=== PATIENT | male | born 1970 | race Caucasian/White ===

== ENCOUNTER 2019-05-04 07:11 | Emergency (ER) | payer OTHER, SELFPAY ==
--- NOTE | ~2019-05-04 | CT_ITS ---
EXAMINATION: CT pelvis w con EXAM DATE: 05/04/2019 08:38 INDICATION: Fall, possible hematoma to buttocks. TECHNIQUE: Spiral CT pelvis w con was performed following intravenous injection of 100 mL Omnipaque 3 50. Axial, coronal and sagittal images were reviewed. The dose-length product (DLP) for this examin ation was 859.80 mGy-cm. The exposure was tailored according to patient size (auto mA exposure contr ol), and iterative reconstruction (ASIR) was used as additional dose reduction technique. There is n o prior study for comparison. FINDINGS: There is fluid collection overlying the right gluteus jacinto muscle measuring 12.5 cm in diameter by up to 4 cm in thickness, consistent with hematoma/seroma. There are no acute fractures id entified. Inferior most margin of the right liver lobe has nodular contour consistent with cirrhosi s, and there is evidence of severe splenomegaly could be from portal hypertension.. There is mild to moderate sigmoid colonic diverticulosis. There is no adjacent inflammatory change to suggest diverti culitis. IMPRESSION: 1. Hematoma/seroma overlying right gluteus jacinto muscle. 2. Cirrhosis and severe splenomegaly likely from portal hypertension. Reviewed, dictated and finalized at location B. OR VICE PRESIDENT
[2019-05-04 07:26] VITALS: BP 156/72; PULSE 99; RESP 20; TEMP 36.1; O2SAT 98
--- NOTE | 2019-05-04 07:33 | ED.SKABFB ---
HPI - Skin/Abscess/Foreign Bdy General Chief complaint: Skin/Abscess/Foreign Body Stated complaint: BUTT SWELLING S/P FALL Time Seen by Provider: 05/04/19 07:23 Source: patient Mode of arrival: ambulatory Limitations: no limitations History of Present Illness HPI narrative: 48 yo male who presents for evaluation of right buttock redness and swelling. Patient states he slipped and fell 8 days ago on ice suffering bruising to his right buttock. Patient states he noticed yesterday his swelling and pain starting getting worse. He also noticed redness to his right buttock. He denies any fever or chills. He denies numbness or tingling. He does report nausea but no vomiting. He has been taking ibuprofen and aleve for his pain. He states he has not taken any medication since last night. Related Data Home Medications Medication Instructions Recorded Confirmed tamsulosin mg PO 05/04/19 Allergies Allergy/AdvReac Type Severity Reaction Status Date / Time No Known Allergies Allergy Verified 05/04/19 07:31 Review of Systems Review of Systems: All systems reviewed & are unremarkable except as noted in HPI and below Constitutional: Constitutional: Denies chills, Denies fever(s) and Denies weakness Cardiovascular: Cardiovascular: Denies chest pain and Denies radiating jaw, neck or arm pain Gastrointestinal: Gastrointestinal: Denies abdominal pain, Denies diarrhea, Reports nausea and Denies vomiting Genitourinary: Genitourinary: Denies hematuria, Denies oliguria and Denies dysuria Integumentary/Breasts: Skin/Breast: Reports erythema (right buttock) Neurologic: Denies focal weakness and Denies numbness PMFSH Past Medical History Medical History (Updated 05/04/19 @ 10:02 by Nayely Pierre MD) Alcoholism Cirrhosis Esophageal varices Family History Family History (Updated 08/25/16 @ 15:32 by DOCTOR UNKNOWN) Father Family history of alcoholism Family history of cardiovascular disease Mother Family history of malignant neoplasm of breast in first degree relative Social History Social History (Updated 05/04/19 @ 07:39 by Nayely Pierre MD) Smoking status: Never smoker Second hand tobacco smoke exposure: No Alcohol intake: current Alcohol use details: history of alcoholism Exam Narrative: Exam Narrative: GENERAL: Well-appearing, well-nourished, and in no acute distress. HEAD: Normocephalic, atraumatic EYES: PERRLA and EOMI, conjunctiva clear without discharge THROAT:Mucous membranes moist, Oropharynx normal without erythema, exudate, peritonsillar swelling or fluctuance NECK: Supple, without lymphadenopathy or mass RESPIRATORY: No respiratory distress, Airway patent, Respirations non-labored, Clear to auscultation without rales, rhonchi or wheeze HEART: Regular rate and rhythm. No murmur heard. Normal peripheral pulses. ABDOMEN: Soft, nontender, nondistended, normal active bowel sounds. No masses. No rebound or guarding, No organomegaly. EXTREMITIES: No edema, normal strength with full range of motion. SKIN: right buttock with large area of ecchymosis with area centrally with erythema, swelling, tenderness NEURO: Alert and oriented x3. CN 2-12 grossly intact. No focal deficits. PSYCH: Normal mood and affect. Course Consultations Consultation #1: I discussed with Dr. Carranza, patient's CT and exam. He states to place patient on antibiotics with no need to admit for intervention at this time. Date: 05/04/19 Time: 09:59 Vital Signs Vital signs: Vital Signs Temperature 97 F L 05/04/19 07:26 Pulse Rate 99 05/04/19 07:26 Respiratory Rate 20 05/04/19 07:26 Blood Pressure 156/72 H 05/04/19 07:26 Pulse Oximetry 98 05/04/19 07:26 Temperature 97 F L 05/04/19 07:26 Pulse Rate 81 05/04/19 10:15 Respiratory Rate 16 05/04/19 10:15 Blood Pressure 135/78 05/04/19 10:15 Pulse Oximetry 99 05/04/19 10:15 MDM - Skin/Abscess/Foreig
[2019-05-04 07:55] LABS: Basophils Percent Auto 0.8 % (0.2-1.2); Eosinophils Absolute Auto 0.3 K/mm3 (0-0.3); Eosinophils Percent Auto 6.4 % (0-4.4); Hematocrit 36.9 % (42.0-52.0); Hemoglobin 12.9 g/dL (14.0-18.0); Immature Granulocyte Absolute 0.02 K/mm3 (0.00-0.031); Immature Granulocyte Percent A 0.5 % (0-0.5); Lymphocytes Percent Auto 30.7 % (18.3-44.2); Mean Corpuscular Hemoglobin 32.1 pg (26-34); Mean Corpuscular Volume 91.8 fl (80-100); Mean Platelet Volume 11.3 fl (7.4-10.4); Monocytes Absolute Auto 0.3 K/mm3 (0.1-0.6); Monocytes Percent Auto 8.7 % (2.6-8.5); Neutrophils Absolute Auto 2.1 K/mm3 (1.3-6.7); Neutrophils Percent Auto 52.9 % (45.5-73.1); Platelet Count Result 57 k/mm3 (150-375); Red Blood Count 4.02 M/mm3 (4.6-6.20); White Blood Count 3.9 K/mm3 (4.5-10.0)
[2019-05-04 08:10] LABS: Alanine Aminotransferase 26 U/L (4-50); Albumin Level 3.6 g/dL (3.5-5.1); Alkaline Phosphatase 155 U/L (38-126); Aspartate Amino Transferase 69 U/L (17-59); Bilirubin,Total 1.9 mg/dL (0.2-1.3); Blood Urea Nitrogen 15 mg/dL (9-20); CRP < 0.5 mg/dL (<1.0); Calcium 8.3 mg/dL (8.4-10.2); Carbon Dioxide 27 mmol/L (22-30); Chloride 108 mmol/L (98-107); Estimated CRCL calculation 216 ml/min; Estimated Glomerular Filt Rate > 60; Glucose 98 mg/dL (75-110); Potassium 3.9 mmol/L (3.4-5.0); Sodium 144 mmol/L (137-145)
[2019-05-04] MEDS: ONDANSETRON INJ 4 MG/2 ML VIAL IV PUSH (08:17)
[2019-05-04 10:15] VITALS: BP 135/78; PULSE 81; RESP 16; O2SAT 99
[2019-05-04] MEDS: ceFAZolin SODIUM 1 GM VIAL IV PUSH (10:16)
== END 2019-05-04 10:15 | disposition home or self-care (01) ==
PROVIDERS: Emergency Provider General Practice; PCP Internal Medicine
DX: L03.317 Cellulitis of buttock (principal); S30.0XXA Contusion of lower back and pelvis, initial encounter; K74.60 Unspecified cirrhosis of liver; R16.1 Splenomegaly, not elsewhere classified; F10.20 Alcohol dependence, uncomplicated; W00.0XXA Fall on same level due to ice and snow, initial encounter
CPT/HCPCS: 36415; 72193; 80053; 85025; 86140; 96374; 96375; 99284; A9270; J0131; J0690; J2405; Q9967

== ENCOUNTER 2019-05-11 10:53 | Emergency (ER) | payer OTHER, SELFPAY ==
[2019-05-11 11:17] VITALS: BP 125/73; PULSE 95; RESP 20; TEMP 37.1; O2SAT 100
--- NOTE | 2019-05-11 11:50 | ED.BACK ---
HPI - Back Pain/Injury General Chief Complaint: Back Pain/Injury Stated Complaint: Lower back pain Source: patient, family, RN notes reviewed and old records reviewed Mode of arrival: ambulatory Limitations: no limitations History of Present Illness HPI Narrative: Patient is a 48-year-old male who presents complaining of rash to right wrist and injury to buttocks. Patient was seen in ED last week after fall. CT results show patient had large hematoma to right buttocks. Patient was treated with antibiotics as well for potential cellulitis. Patient reports he is continuing to take the antibiotics but pain has increased. Patient was also supposed to follow-up with Dr. Carranza this week but failed to return phone call. Patient complaining of increased pain. Patient reports taking [place] for 4 days with some relief, he is asking for refill of [place]. Patient also reporting rash to right wrist. MD elicited complaint: other (Right buttocks pain) Related Data Home Medications Medication Instructions Recorded Confirmed tamsulosin 0.4 mg PO DAILY 05/04/19 05/11/19 Allergies Allergy/AdvReac Type Severity Reaction Status Date / Time No Known Allergies Allergy Verified 05/11/19 11:33 Review of Systems Review of Systems: Narrative: CONSTITUTIONAL: Denies fever, chills, or sweats. EYES: Denies visual changes, redness, or discharge. ENT: Denies rhinorrhea, congestion, sore throat, or otalgia. CARDIOVASCULAR: Denies chest pain, palpitations, or edema. RESPIRATORY: Denies cough or dyspnea. GASTROINTESTINAL: Denies abdominal pain, nausea, vomiting, or diarrhea. GENITOURINARY: Denies dysuria or hematuria. SKIN: Reports area of redness and tenderness to right buttocks MUSCULOSKELETAL: Denies back pain, joint pain, or myalgia. NEUROLOGIC: Denies headache, numbness, dizziness, or weakness. PSYCHIATRIC: Denies anxiety or depression. [facility] Past Medical History Medical History Alcoholism Cirrhosis Esophageal varices Family History Family History Father Family history of alcoholism Family history of cardiovascular disease Mother Family history of malignant neoplasm of breast in first degree relative Social History Social History Smoking status: Never smoker Second hand tobacco smoke exposure: No Alcohol intake: current Exam Narrative: Exam Narrative: GENERAL: Well-appearing, well-nourished, and in no acute distress. HEAD: Normocephalic, atraumatic. EYES: No redness or drainage. Conjunctiva are normal. ENT: Mucous membranes pink and moist. CHEST: No respiratory distress. Clear to auscultation. HEART: Regular rate and rhythm. No murmur appreciated. Normal peripheral pulses. EXTREMITIES: Normal range of motion. No edema. SKIN: Right wrist: Approximate 1 cm Honey crusted lesion to right wrist, various stages of bruising to lumbar spine, buttocks and hip, large area of erythema and edema to right buttocks, no fluctuation or induration. NEURO: No focal deficits. Alert and oriented x3. Gait steady. PSYCH: Normal affect. No signs of depression or anxiety. Course Vital Signs Vital signs: Vital Signs Temperature 37.1 C 05/11/19 11:17 Pulse Rate 95 05/11/19 11:17 Respiratory Rate 05/11/19 11:17 Blood Pressure 125/73 05/11/19 11:17 Pulse Oximetry 100 05/11/19 11:17 Temperature 37.1 C 05/11/19 11:17 Pulse Rate 95 05/11/19 11:17 Respiratory Rate 05/11/19 11:17 Blood Pressure 125/73 05/11/19 11:17 Pulse Oximetry 100 05/11/19 11:17 MDM - Back Pain/Injury MDM Narrative Medical decision making narrative: Discussed with patient about return to ER for another possible CT scan. Patient refuses and reports that he will follow-up with Dr. Carranza as he should have earlier this week. Discussed that he may take o
== END 2019-05-11 12:13 | disposition home or self-care (01) ==
PROVIDERS: Emergency Provider Nurse Practitioner; PCP Internal Medicine
DX: R10.2 Pelvic and perineal pain (principal); L01.00 Impetigo, unspecified; K74.60 Unspecified cirrhosis of liver
CPT/HCPCS: 99213; G0463

== ENCOUNTER 2019-05-14 10:36 | Emergency (ER) | payer OTHER, SELFPAY ==
[2019-05-14 11:03] VITALS: BP 163/99; PULSE 114; RESP 20; TEMP 37.3; O2SAT 96
--- NOTE | 2019-05-14 11:34 | ED.GENADULT ---
HPI - General Adult General Chief complaint: Unspecified Stated complaint: Hematoma Time Seen by Provider: 05/14/19 11:11 Source: patient and family History of Present Illness HPI narrative: Patient slipped on ice few weeks ago causing right buttock hematoma by his family physician and today is a second ED visit for the same complaint patient scheduled to see Dr. Carranza our surgeon next week patient believes that the hematoma need to be aspirated. Patient denying any fever, chills, nausea or vomiting or new trauma. No tingling, numbness or radiating pain. Just localized pain at the right buttock Related Data Home Medications Medication Instructions Recorded Confirmed tamsulosin 0.4 mg PO DAILY 05/04/19 05/11/19 Allergies Allergy/AdvReac Type Severity Reaction Status Date / Time No Known Allergies Allergy Verified 05/11/19 11:33 Review of Systems Review of Systems: Narrative: CONSTITUTIONAL: Denies fever, chills, or sweats. EYES: Denies visual changes, redness, or discharge. ENT: Denies rhinorrhea, congestion, sore throat, or otalgia. CARDIOVASCULAR: Denies chest pain, palpitations, or edema. RESPIRATORY: Denies cough or dyspnea. GASTROINTESTINAL: Denies abdominal pain, nausea, vomiting, or diarrhea. GENITOURINARY: Denies dysuria or hematuria. SKIN: Denies rash or itching., Right buttock hematoma, tender MUSCULOSKELETAL: Denies back pain, joint pain, or myalgia. Right buttock tenderness and pain NEUROLOGIC: Denies headache, numbness, or weakness. PSYCHIATRIC: Denies anxiety or depression. [facility] Past Medical History Medical History Alcoholism Cirrhosis Esophageal varices Family History Family History Father Family history of alcoholism Family history of cardiovascular disease Mother Family history of malignant neoplasm of breast in first degree relative Social History Social History Smoking status: Never smoker Second hand tobacco smoke exposure: No Alcohol intake: current Exam Narrative: Exam Narrative: General appearance: Well-developed, well-nourished Skin: Normal color, right buttock hematoma, diffusely tender, 15 x 10 cm Head: Normocephalic, nontraumatic Eyes: Clear conjunctiva ENT: Oropharynx normal, ears normal, nose normal Neck: Supple, nontender Chest and respiratory: Airway patent, no respiratory distress, no accessory muscle use Heart: Regular rate/rhythm Abdomen: Soft, nontender, no organomegaly, quiet bowel sounds Vascular: Normal peripheral pulses, normal capillary refill. Musculoskeletal: Normal range of motion, nontender back Neurologic: Alert and oriented ?3, WOUND CARE PHYSICIAN is normal as tested, no gross motor deficit Course Course Emergency Course: Improving Vital Signs Vital signs: Vital Signs Temperature 37.3 C 05/14/19 11:03 Pulse Rate 114 H 05/14/19 11:03 Respiratory Rate 20 05/14/19 11:03 Blood Pressure 163/99 H 05/14/19 11:03 Pulse Oximetry 96 05/14/19 11:03 Temperature 37.3 C 05/14/19 11:03 Pulse Rate 114 H 05/14/19 11:03 Respiratory Rate 05/14/19 11:03 Blood Pressure 163/99 H 05/14/19 11:03 Pulse Oximetry 96 05/14/19 11:03 Medical Decision Making MDM Narrative Medical decision making narrative: Traumatic hematoma at the right buttock. My recommendation to continue Tylenol and ibuprofen, and hematoma will be resolved spontaneously over the next few days/weeks. Patient scheduled to see a surgeon next week. The possibility of aspiration is less likely. Vital Signs Vital Signs: Vital Signs
[2019-05-14] MEDS: IBUPROFEN 600 MG TABLET PO (11:38)
== END 2019-05-14 11:46 | disposition home or self-care (01) ==
PROVIDERS: Emergency Provider Emergency Medicine; PCP Internal Medicine
DX: S30.0XXD Contusion of lower back and pelvis, subsequent encounter (principal); K74.60 Unspecified cirrhosis of liver; F10.20 Alcohol dependence, uncomplicated; W00.0XXD Fall on same level due to ice and snow, subsequent encounter
CPT/HCPCS: 99283; A9270

== ENCOUNTER → 2019-05-28 12:36 | Outpatient (CLI) | payer OTHER, SELFPAY ==
--- NOTE | ~2019-05-28 | XR_ITS ---
EXAMINATION: XR hand RT min 3V DATE: 05/28/2019 12:48 INDICATION: Right hand dog bite and pain. Initial encounter. TECHNIQUE: 3 views of right hand were obtained. COMPARISON: None. FINDINGS: Bone alignment is normal. No fracture. Joint spaces are well maintained. IMPRESSION: 1. Normal right hand. Reviewed, dictated and finalized at location A. ATOR CONSTRUCTOR SUPERVISOR IMPRESSION: 1. Normal right hand.
== END ==
PROVIDERS: PCP Internal Medicine; Visit Provider Internal Medicine
DX: M79.641 Pain in right hand (principal); W54.0XXA Bitten by dog, initial encounter
CPT/HCPCS: 73130

== ENCOUNTER 2020-03-31 13:49 | Emergency (ER) | payer OTHER, SELFPAY ==
--- NOTE | ~2020-03-31 | CT_ITS ---
EXAMINATION: CT abdomen pelvis w con INDICATION: Back pain TECHNIQUE: Computed tomographic images of the abdomen and pelvis were obtained after the administrati on of 100 cc of Omnipaque 350 intravenous contrast. The dose-length product (DLP) was 1309.51 mGy-cm. Automated exposure control and iterative reconstruction technique were employed. COMPARISON: 05/04/2019 FINDINGS: The lung bases are clear. The heart size is normal. There is nodularity of the liver surfac e. The spleen measures 18.2 cm in craniocaudal dimension. The pancreas, gallbladder, and adrenal glan ds are normal. The kidneys are unremarkable. No pathologically enlarged abdominal or pelvic lymph nod es are identified. There is no free intraperitoneal gas or evidence of bowel obstruction. There are l arge splenorenal varices. Colonic diverticulosis is present without evidence of diverticulitis. There is an acute fracture of the left L2 transverse process. There is a midline subcutaneous hematoma pos teriorly in the soft tissues overlying the upper lumbar spine. IMPRESSION: 1. Acute left L2 transverse process fracture, otherwise no lumbar spine fracture identified. 2. Cirrhosis with portal hypertension. Reviewed, dictated and finalized at location A. PAINTER IMPRESSION: 1. Acute left L2 transverse process fracture, otherwise no lumbar spine fractur e identified. 2. Cirrhosis with portal hypertension.
[2020-03-31 14:15] VITALS: BP 142/77; PULSE 88; RESP 15; TEMP 36.4; O2SAT 99
[2020-03-31 14:42] LABS: Basophils Absolute Auto 0.1 K/mm3 (0.0-0.1); Basophils Percent Auto 0.5 % (0.2-1.2); Eosinophils Absolute Auto 0.4 K/mm3 (0-0.3); Eosinophils Percent Auto 3.2 % (0-4.4); Hematocrit 36.7 % (42.0-52.0); Hemoglobin 13.2 g/dL (14.0-18.0); Immature Granulocyte Absolute 0.03 K/mm3 (0.00-0.031); Immature Granulocyte Percent A 0.3 % (0-0.5); Lymphocytes Percent Auto 24.1 % (18.3-44.2); Mean Corpuscular Hemoglobin 32.5 pg (26-34); Mean Corpuscular Volume 90.4 fl (80-100); Mean Platelet Volume 10.1 fl (7.4-10.4); Monocytes Absolute Auto 1.4 K/mm3 (0.1-0.6); Monocytes Percent Auto 11.8 % (2.6-8.5); Neutrophils Percent Auto 60.1 % (45.5-73.1); Platelet Count Result 140 k/mm3 (150-375); Red Blood Count 4.06 M/mm3 (4.6-6.20); Red Cell Distribution Width 14.6 % (11.5-14.5); White Blood Count 11.6 K/mm3 (4.5-10.0)
[2020-03-31 14:55] LABS: Alanine Aminotransferase 25 U/L (4-50); Albumin Level 3.3 g/dL (3.5-5.1); Alkaline Phosphatase 116 U/L (38-126); Anion Gap 12 mmol/L (8-16); Aspartate Amino Transferase 41 U/L (17-59); Bilirubin,Total 1.6 mg/dL (0.2-1.3); Blood Urea Nitrogen 20 mg/dL (9-20); Carbon Dioxide 21 mmol/L (22-30); Chloride 110 mmol/L (98-107); Estimated CRCL calculation 148 ml/min; Estimated Glomerular Filt Rate > 60; Glucose 124 mg/dL (75-110); Potassium 3.9 mmol/L (3.4-5.0); Sodium 143 mmol/L (137-145)
[2020-03-31] MEDS: SODIUM CHLORIDE 0.9% IV 1,000 ML 999 ML IV CONT (15:25)
--- NOTE | 2020-03-31 15:45 | ED.BACK ---
HPI - Back Pain/Injury General Chief Complaint: Back Pain/Injury Stated Complaint: fall/back wound Time Seen by Provider: 03/31/20 13:56 Source: patient Mode of arrival: ambulatory Limitations: no limitations History of Present Illness HPI Narrative: Patient is a 49-year-old male who presents to emergency department for evaluation of back injury that occurred Tuesday evening noting that he was out at night tripped over an object landing backwards and developed a large hematoma to the lower lumbar region. Patient notes pain at this location only denies other injuries or complaints. Patient has not taken anything for his symptoms. Related Data Home Medications Medication Instructions Recorded Confirmed cetirizine 10 mg capsule 10 mg PO DAILY 05/17/19 03/05/20 ferrous sulfate 325 mg (65 mg 325 mg PO DAILY 05/17/19 03/05/20 iron) tablet bupropion HCl 150 mg PO BID 03/31/20 magnesium oxide 400 mg PO BID 03/31/20 Allergies Allergy/AdvReac Type Severity Reaction Status Date / Time No Known Allergies Allergy Verified 03/31/20 14:22 Review of Systems Review of Systems: All systems reviewed & are unremarkable except as noted in HPI and below PMFSH Past Medical History Medical History Alcoholism (Unknown) Cirrhosis Esophageal varices Essential tremor History of blood transfusion Oral herpes simplex infection Surgical History Surgical History History of esophagogastroduodenoscopy (EGD) x3 Family History Family History Father Family history of alcoholism Family history of cardiovascular disease Mother Family history of malignant neoplasm of breast in first degree relative Social History Social History Smoking status: Never smoker Second hand tobacco smoke exposure: No Alcohol intake: current Gender identity (if verbalized by the patient): Male Exam Narrative: Exam Narrative: GENERAL: Well-appearing, well-nourished, and in no acute distress. HEAD: Normocephalic, atraumatic. EYES: PERRLA and EOMI. ENT: Nares clear, no rhinorrhea or epistaxis. Mucous membranes moist. CHEST: Clear to auscultation. No respiratory distress. No wheezes rales or rhonchi HEART: Regular rate and rhythm. No murmur heard. Normal peripheral pulses. ABDOMEN: Soft, nontender, nondistended EXTREMITIES: Normal range of motion. No edema. Midline lumbar tenderness paraspinally with hematoma midline SKIN: Warm, dry, no rash. NEURO: No focal deficits. Alert and oriented x3. Cranial nerves II through XII grossly intact. Normal speech and gait. Motor and sensory intact in the extremities PSYCH: Normal mood and affect. Course Course Emergency Course: Patient evaluated in the emergency department and found to have transverse process fracture as the likely etiology of the discomfort coupled with hematoma hemodynamically stable in no distress pain well tolerated will be discharged home for further evaluation by primary care patient agrees with this plan and is hemodynamically stable with ABCs intact. Patient was made aware of case findings treatment plan and diagnosis Vital Signs Vital signs: Vital Signs Temperature 97.5 F L 03/31/20 14:15 Pulse Rate 88 03/31/20 14:15 Respiratory Rate 15 03/31/20 14:15 Blood Pressure 142/77 H 03/31/20 14:15 Pulse Oximetry 99 03/31/20 14:15 Temperature 97.5 F L 03/31/20 14:15 Pulse Rate 88 03/31/20 14:15 Respiratory Rate 15 03/31/20 14:15 Blood Pressure 142/77 H 03/31/20 14:15 Pulse Oximetry 99 03/31/20 14:15 MDM - Back Pain/Injury MDM Narrative Medical decision making narrative: Patient evaluated in the emergency department made aware of case findings treatment plan diagnosis agreeing to follow-up as instructed with his pr
[2020-03-31 16:00] LABS: INR 1.5; Partial Thromboplastin Time 38.3 SECONDS (22.3-36.8); Prothrombin Time 18.3 Seconds (11.1-14.7)
[2020-03-31 16:18] VITALS: BP 101/85; PULSE 75; RESP 20; O2SAT 100
== END 2020-03-31 16:27 | disposition home or self-care (01) ==
PROVIDERS: Emergency Medicine Emergency Medical Services; Emergency Provider Emergency Medicine; PCP Internal Medicine
DX: S32.028A Other fracture of second lumbar vertebra, initial encounter for closed fracture (principal); S30.0XXA Contusion of lower back and pelvis, initial encounter; W01.0XXA Fall on same level from slipping, tripping and stumbling without subsequent striking against object, initial encounter; K74.60 Unspecified cirrhosis of liver
CPT/HCPCS: 36415; 74177; 80053; 85025; 85610; 85730; 96365; 99284; J0131; J7030; Q9967

== ENCOUNTER 2020-04-01 10:43 | Emergency (ER) | payer OTHER, SELFPAY ==
[2020-04-01 10:49] VITALS: BP 133/78; PULSE 78; RESP 20; TEMP 37; O2SAT 99
--- NOTE | 2020-04-01 11:10 | PC.NURSE ---
report called to marisol SOFIA at [facility] ER
--- NOTE | 2020-04-01 11:10 | PC.NURSE ---
Patient placed in hard C Collar due to cervical tenderness on palapation
--- NOTE | 2020-04-01 11:13 | ED.GENADULT ---
HPI - General Adult General Chief complaint: Back Pain/Injury Stated complaint: back pain Source: patient Mode of arrival: ambulatory Limitations: no limitations History of Present Illness HPI narrative: Patient presents for evaluation after experiencing a fall on 03/29/2020. He indicates he was walking outside when it was dark when he tripped over what he believes was an ornamental reindeer, although he is not entirely sure of that. He is unsure whether he hit his head or had a loss of consciousness. He denies use of any blood thinning medications. Following the fall he consumed alcohol to control pain that he was experiencing in his low back. He does admit to being an alcoholic but has gone periods of weeks without drinking. However he does binge drink when he does consume alcohol. On 03/30/2020 he had several episodes where he felt like his equilibrium was off and has also experienced some gait disturbance. He also had a difficulty with perception of time. He denies any headache or vomiting following the episode. He was evaluated at [facility] emergency department yesterday where he had a CT abdomen that showed an L2 transverse process fracture. He was also diagnosed with a hematoma to the back. He was not discharged with any analgesics and states that he is not interested in taking any controlled substances for pain. He has consumed a few shots of alcohol over the last few days to control his pain. He is unable to give me a numerical rating to his low back pain. He denies any saddle anesthesia, bladder/bowel incontinence. He does have some posterior neck pain that he rates as 4 out of 10 in severity. He denies any paresthesias in the upper extremities but has experienced some in his bilateral feet. He was instructed to follow-up with his primary care provider but states that that provider is out of town until 04/07/2020. He indicates he is essentially here for a follow-up appointment. Related Data Home Medications Medication Instructions Recorded Confirmed bupropion HCl 150 mg PO BID 03/31/20 04/01/20 magnesium oxide 400 mg PO BID 03/31/20 Allergies Allergy/AdvReac Type Severity Reaction Status Date / Time No Known Allergies Allergy Verified 03/31/20 14:22 Review of Systems Review of Systems: Narrative: CONSTITUTIONAL: Denies fever, chills, or sweats. EYES: Denies visual changes, redness, or discharge. ENT: Denies rhinorrhea, congestion, sore throat, or otalgia. Reports neck pain CARDIOVASCULAR: Denies chest pain, palpitations, or edema. RESPIRATORY: Denies cough or dyspnea. GASTROINTESTINAL: Denies abdominal pain, nausea, vomiting, or diarrhea. GENITOURINARY: Denies dysuria or hematuria. SKIN: Denies rash or itching. MUSCULOSKELETAL: Reports back pain. Denies joint pain, or myalgia. NEUROLOGIC: Denies headache. Reports problems with equilibrium and numbness and tingling in bilateral feet. Reports gait disturbance PSYCHIATRIC: Denies anxiety or depression. PMFSH Past Medical History Medical History Alcoholism (Unknown) Cirrhosis Esophageal varices Essential tremor History of blood transfusion Oral herpes simplex infection Surgical History Surgical History History of esophagogastroduodenoscopy (EGD) x3 Family History Family History Father Family history of alcoholism Family history of cardiovascular disease Mother Family history of malignant neoplasm of breast in first degree relative Social History Social History Smoking status: Never smoker Second hand tobacco smoke exposure: No Alcohol intake: current Gender identity (if verbalized by the patient): Male Exam Narrative: Exam Narrative: GENERAL: Well-appearing, well-nourished
== END 2020-04-01 11:21 | disposition short-term general hospital (02) ==
LOC: EXPTROY 10:46
PROVIDERS: Emergency Provider Nurse Practitioner; PCP Internal Medicine
DX: S09.90XA Unspecified injury of head, initial encounter (principal); W19.XXXA Unspecified fall, initial encounter; S32.029G Unspecified fracture of second lumbar vertebra, subsequent encounter for fracture with delayed healing; W19.XXXD Unspecified fall, subsequent encounter; R26.9 Unspecified abnormalities of gait and mobility; K74.60 Unspecified cirrhosis of liver
CPT/HCPCS: 99212; G0463; L0140

== ENCOUNTER 2020-04-01 12:10 | Emergency (ER) | payer OTHER, SELFPAY ==
--- NOTE | ~2020-04-01 | CT_ITS ---
EXAMINATION: CT brain wo con DATE: 04/01/2020 12:46 INDICATION: Syncopal episode, dizziness TECHNIQUE: Computed tomography (CT) of the head was performed without intravenous contrast. The mA wa s adjusted according to patient size. Iterative reconstruction technique was employed. Exam dose: 60 5.33 mGy-cm total exam DLP. COMPARISON: 09/16/2018 CT brain FINDINGS: No intracranial mass lesion or hemorrhage or cerebrovascular accident is evident. No midlin e shift or mass effect. Normal ventricular size. Bilateral carotid siphon internal carotid artery calcifications. No subdural or epidural hematoma. No fracture or bone destruction of the cranial vault. The mastoid air cells and included paranasal si nuses are normally developed and aerated. IMPRESSION: Cerebral atherosclerosis; no acute intracranial finding Reviewed, dictated and finalized at [facility]. Reviewed, dictated and finalized at [facility]. [facility] [employer]
[2020-04-01 12:11] VITALS: BP 119/62; PULSE 86; RESP 19; TEMP 36.9; O2SAT 99
--- NOTE | 2020-04-01 12:17 | ECG_ITS ---
Measurements Intervals [place] Rate: 77 P: -18 NE: 134 QRS: 0 QRSD: 102 T: 48 QT: 405 QTc: 460 Interpretive Statements SINUS RHYTHM VOLTAGE CRITERIA FOR LVH NONSPECIFIC T-WAVE ABNORMALITY- INFERIOR LEADS BORDERLINE ECG Electronically Signed On 04-01-2020 13:42:11 [employer] by Chip Bennett D.O.
--- NOTE | 2020-04-01 12:25 | PC.NURSE ---
Addendum entered by Martina Laughlin RN 04/01/20 12:29: verbal order for pt/inr, and ptt Original Note: verbal order from taisha baldwin for cbc, cmp, ct brain wo contrast, etoh level, ua and drug screen stat. orders placed.
[2020-04-01 12:46] LABS: Basophils Absolute Auto 0.1 K/mm3 (0.0-0.1); Basophils Percent Auto 0.7 % (0.2-1.2); Eosinophils Absolute Auto 0.3 K/mm3 (0-0.3); Eosinophils Percent Auto 3.2 % (0-4.4); Hematocrit 33.2 % (42.0-52.0); Hemoglobin 11.8 g/dL (14.0-18.0); Immature Granulocyte Absolute 0.02 K/mm3 (0.00-0.031); Immature Granulocyte Percent A 0.2 % (0-0.5); Lymphocytes Absolute Auto 1.85 K/mm3 (0.9-3.2); Lymphocytes Percent Auto 21.9 % (18.3-44.2); Mean Corpuscular HGB Conc 35.5 g/dl (32-36); Mean Corpuscular Hemoglobin 32.1 pg (26-34); Mean Corpuscular Volume 90.2 fl (80-100); Monocytes Absolute Auto 0.9 K/mm3 (0.1-0.6); Monocytes Percent Auto 10.5 % (2.6-8.5); Neutrophils Absolute Auto 5.4 K/mm3 (1.3-6.7); Neutrophils Percent Auto 63.5 % (45.5-73.1); Platelet Count Result 110 k/mm3 (150-375); Red Blood Count 3.68 M/mm3 (4.6-6.20); Red Cell Distribution Width 14.5 % (11.5-14.5); White Blood Count 8.5 K/mm3 (4.5-10.0)
[2020-04-01 12:56] LABS: INR 1.4; Partial Thromboplastin Time 39.3 SECONDS (22.3-36.8); Prothrombin Time 18.1 Seconds (11.1-14.7)
[2020-04-01 12:58] LABS: Ethanol 187 mg/dL (<10)
[2020-04-01 13:01] LABS: Alanine Aminotransferase 23 U/L (4-50); Albumin Level 3.1 g/dL (3.5-5.1); Alkaline Phosphatase 87 U/L (38-126); Anion Gap 6 mmol/L (8-16); Aspartate Amino Transferase 43 U/L (17-59); Bilirubin,Total 2.5 mg/dL (0.2-1.3); Blood Urea Nitrogen 17 mg/dL (9-20); Calcium 8.5 mg/dL (8.4-10.2); Carbon Dioxide 26 mmol/L (22-30); Chloride 108 mmol/L (98-107); Estimated CRCL calculation 129 ml/min; Estimated Glomerular Filt Rate > 60; Glucose 98 mg/dL (75-110); Potassium 3.9 mmol/L (3.4-5.0); Sodium 140 mmol/L (137-145)
[2020-04-01 13:09] LABS: Add Urine Microscopic? YES; Appearance Urine Clear (Clear); Bacteria Urine Trace /hpf; Bilirubin Urine Negative (Negative); Blood Urine Negative (Negative); Color Urine Amber (Yellow); Glucose Urine UA Negative (Negative); Hyaline Casts Urine 30-49 /lpf; Ketones Urine Negative (Negative); Leukocyte Esterase Ur Negative LEU/UL (Negative); Mucus Urine Heavy /lpf; Nitrate Urine Negative (Negative); Protein Urine 1+ mg/dL (Negative); RBC Urine 0-2 /hpf (0-2); Squamous Epithelial Cell Urine Rare /hpf (Few)
[2020-04-01 13:18] LABS: Amphetamine Screen Urine Negative (Negative); Barbiturate Screen Urine Negative (Negative); Benzodiazepines Screen Urine Negative (Negative); Cannabinoid Screen Urine Negative (Negative); Cocaine Screen Urine Negative (Negative); Methadone Screen Urine Negative (Negative); Opiate Screen Urine Negative (Negative); Phencyclidine Screen Urine Negative (Negative)
[2020-04-01 13:19] LABS: Specific Grav Ur 1.035 (1.001-1.035)
[2020-04-01 14:40] VITALS: BP 120/68; PULSE 75; RESP 17; O2SAT 100
--- NOTE | 2020-04-01 15:19 | ED.DIZZY ---
HPI - Dizziness General Chief Complaint: Dizziness Stated Complaint: -BACK FX, seen yest. C/O DIZZINESS Time Seen by Provider: 04/01/20 14:26 Source: patient Mode of arrival: ambulatory Limitations: no limitations History of Present Illness HPI Narrative: 49-year-old with a history of chronic alcoholism, cirrhosis liver, hypertension, GERD here with complaints of dizziness since this morning. Patient states that he fell couple days ago was seen here in the ER yesterday was diagnosed with L2 transverse process fracture . He states that since this morning is being wobbly unable to walk straight. He denies any headache, chest pain or shortness of breath. He is worried about head injury MD elicited complaint: dizziness Timing: sudden onset Severity: moderate Description: off-balance Exacerbating factors: nothing Relieving factors: nothing Associated symptoms: denies other symptoms Related Data Home Medications Medication Instructions Recorded Confirmed bupropion HCl 150 mg PO BID 03/31/20 04/01/20 magnesium oxide 400 mg PO BID 03/31/20 Allergies Allergy/AdvReac Type Severity Reaction Status Date / Time No Known Allergies Allergy Verified 03/31/20 14:22 Review of Systems Review of Systems: All systems reviewed & are unremarkable except as noted in HPI and below Constitutional: Constitutional: Reports no additional constitutional complaints Eyes: Eyes: Reports no additional eye complaints ENT: Reports system reviewed and no additional complaints, except as documented Cardiovascular: Cardiovascular: Reports as per HPI Respiratory: Respiratory: Reports no additional respiratory complaints Gastrointestinal: Gastrointestinal: Reports no additional gastrointestinal complaints PMFSH Past Medical History Medical History Alcoholism (Unknown) Cirrhosis Esophageal varices Essential tremor History of blood transfusion Oral herpes simplex infection Surgical History Surgical History History of esophagogastroduodenoscopy (EGD) x3 Family History Family History Father Family history of alcoholism Family history of cardiovascular disease Mother Family history of malignant neoplasm of breast in first degree relative Social History Social History Smoking status: Never smoker Second hand tobacco smoke exposure: No Alcohol intake: current Gender identity (if verbalized by the patient): Male Exam Narrative: Exam Narrative: GENERAL: Well-appearing, well-nourished, and in no acute distress. HEAD: Normocephalic, atraumatic. EYES: PERRLA and EOMI.. NECK:. C-collar in place CHEST: Clear to auscultation. No respiratory distress. HEART: Regular rate and rhythm. No murmur heard. Normal peripheral pulses. ABDOMEN: Soft, nontender, nondistended, normal active bowel sounds. EXTREMITIES: Normal range of motion. No edema. SKIN: Warm, dry, no rash. NEURO: No focal deficits. Alert and oriented x3. PSYCH: Normal mood and affect. Course Course Emergency Course: Patient comfortably sitting on the bed in no discomfort talking with his neighbor. Informed him about his lab work EKG and CT findings he is aware of his alcoholism. I informed him that his wobbly gait is most likely from his alcohol rather than head injury. Vital Signs Vital signs: Vital Signs Temperature 36.9 C 04/01/20 12:11 Pulse Rate 86 04/01/20 12:11 Respiratory Rate 19 04/01/20 12:11 Blood Pressure 119/62 04/01/20 12:11 Pulse Oximetry 99 04/01/20 12:11 Temperature 36.9 C 04/01/20 12:11 Pulse Rate 75 04/01/20 14:40 Respiratory Rate 17 04/01/20 14:40 Blood Pressure 120/68 04/01/20 14:40 Pulse Oximetry 100 04/01/20 14:40 MDM - Dizziness Differential Diagnosis Differential diagnosis
== END 2020-04-01 15:32 | disposition home or self-care (01) ==
PROVIDERS: Emergency Provider Family Medicine; PCP Internal Medicine
DX: R42 Dizziness and giddiness (principal); F10.20 Alcohol dependence, uncomplicated; Y90.0 Blood alcohol level of less than 20 mg/100 ml; K74.60 Unspecified cirrhosis of liver; I10 Essential (primary) hypertension; K21.9 Gastro-esophageal reflux disease without esophagitis
CPT/HCPCS: 36415; 70450; 80053; 80307; 81001; 85025; 85610; 85730; 93005; 99284; L0140

== ENCOUNTER 2020-04-08 22:18 | Emergency (ER) | payer OTHER, SELFPAY ==
[2020-04-08 22:20] VITALS: BP 148/88; PULSE 88; RESP 16; TEMP 36.6; O2SAT 98
--- NOTE | 2020-04-08 22:56 | ED.ALCOHOL ---
HPI - Alcohol General Chief Complaint: Alcohol Stated Complaint: alcohol detox Time Seen by Provider: 04/08/20 22:38 Source: patient Mode of arrival: ambulatory Limitations: no limitations History of Present Illness HPI narrative: 49-year-old male presents to the emergency department today with complaints of nausea vomiting and general malaise. Patient states that he feels very unwell. He notes that he has a history of drinking alcohol and thinks that he may be in withdrawals. Patient does drink to excess at times to self medicate with pain. He states that he can usually tolerate high quantities of alcohol with no issues. Patient notes that today he only had 4-5 shots which as he states is very minimal for him. Related Data Home Medications Medication Instructions Recorded Confirmed bupropion HCl 150 mg PO BID 03/31/20 04/01/20 magnesium oxide 400 mg PO BID 03/31/20 Allergies Allergy/AdvReac Type Severity Reaction Status Date / Time No Known Allergies Allergy Verified 04/08/20 22:26 Review of Systems Review of Systems: Narrative: CONSTITUTIONAL: Endorses diaphoresis, generalized malaise and fatigue. EYES: Denies visual changes, redness, or discharge. ENT: Denies rhinorrhea, congestion, sore throat, or otalgia. CARDIOVASCULAR: Denies chest pain, palpitations, or edema. RESPIRATORY: Denies cough or dyspnea. GASTROINTESTINAL: Patient endorses abdominal pain, nausea and vomiting. GENITOURINARY: Denies dysuria or hematuria. SKIN: Denies rash or itching. MUSCULOSKELETAL: Denies back pain, joint pain, or myalgia. NEUROLOGIC: Denies headache, numbness, dizziness, or weakness. PSYCHIATRIC: Denies anxiety or depression. [facility] Past Medical History Medical History Alcoholism (Unknown) Cirrhosis Esophageal varices Essential tremor History of blood transfusion Oral herpes simplex infection Surgical History Surgical History History of esophagogastroduodenoscopy (EGD) x3 Family History Family History Father Family history of alcoholism Family history of cardiovascular disease Mother Family history of malignant neoplasm of breast in first degree relative Social History Social History Smoking status: Never smoker Second hand tobacco smoke exposure: No Alcohol intake: current Gender identity (if verbalized by the patient): Male Exam Narrative: Exam Narrative: GENERAL: Well-appearing, well-nourished, and in no acute distress. HEAD: Normocephalic, atraumatic. EYES: PERRLA and EOMI. ENT: Nares clear, no rhinorrhea or epistaxis. Mucous membranes moist. Oropharynx without tonsillar hypertrophy exudate or other lesions. Bilateral TMs pearly noble nonbulging NECK: Supple. No adenopathy or masses. No carotid bruits or JVD CHEST: Clear to auscultation. No respiratory distress. No wheezes rales or rhonchi HEART: Regular rate and rhythm. No murmur heard. Normal peripheral pulses. ABDOMEN: Obese abdomen, soft, nontender, nondistended, normal active bowel sounds. EXTREMITIES: Normal range of motion. No edema. SKIN: Warm, dry, no rash. NEURO: No focal deficits. Alert and oriented x3. PSYCH: Normal mood and affect. Course Reevaluation(s) Reevaluation #1: Patient reevaluated, he was sleeping comfortably in the bed. Patient has not been vomiting. He has ceased his tremors. Discussed patient's goals with him. He notes that he would like to quit. At this time I do not feel the patient warrants inpatient admission. We will give him necessary prescriptions and referrals to rehab centers. Patient verbalizes understanding and agreement with this. Date: 04/09/20 Time: 01:11 Vital Signs Vital signs: Vital Signs Temperature 36.6 C 04/08/20 22:20 Pulse Rate 88 04/08/20 22:20 Respiratory Ra
[2020-04-08] MEDS: LACTATED RINGERS 1,000 ML 999 ML IV CONT (23:14)
[2020-04-08] MEDS: ONDANSETRON INJ 4 MG/2 ML VIAL IV PUSH (23:15)
[2020-04-08] MEDS: LORazepam INJ (*CRX) 2 MG/ML VIAL 1 MG IV PUSH (23:15)
[2020-04-08] MEDS: THIAMINE HCL 200 MG/2 ML VIAL 100 MG IV PUSH (23:15)
[2020-04-08 23:28] LABS: Basophils Percent Auto 0.5 % (0.2-1.2); Eosinophils Absolute Auto 0.2 K/mm3 (0-0.3); Eosinophils Percent Auto 2.8 % (0-4.4); Hematocrit 32.9 % (42.0-52.0); Hemoglobin 11.5 g/dL (14.0-18.0); Immature Granulocyte Absolute 0.03 K/mm3 (0.00-0.031); Immature Granulocyte Percent A 0.5 % (0-0.5); Lymphocytes Absolute Auto 1.18 K/mm3 (0.9-3.2); Lymphocytes Percent Auto 18.6 % (18.3-44.2); Mean Corpuscular Hemoglobin 32.3 pg (26-34); Mean Corpuscular Volume 92.4 fl (80-100); Mean Platelet Volume 9.4 fl (7.4-10.4); Monocytes Absolute Auto 0.4 K/mm3 (0.1-0.6); Monocytes Percent Auto 6.6 % (2.6-8.5); Neutrophils Absolute Auto 4.5 K/mm3 (1.3-6.7); Platelet Count Result 109 k/mm3 (150-375); Red Blood Count 3.56 M/mm3 (4.6-6.20); Red Cell Distribution Width 14.9 % (11.5-14.5); White Blood Count 6.4 K/mm3 (4.5-10.0)
[2020-04-08 23:41] LABS: Alanine Aminotransferase 17 U/L (4-50); Albumin Level 2.9 g/dL (3.5-5.1); Alkaline Phosphatase 96 U/L (38-126); Anion Gap 3 mmol/L (8-16); Aspartate Amino Transferase 41 U/L (17-59); Bilirubin,Total 2.2 mg/dL (0.2-1.3); Blood Urea Nitrogen 7 mg/dL (9-20); Calcium 8.1 mg/dL (8.4-10.2); Carbon Dioxide 32 mmol/L (22-30); Chloride 107 mmol/L (98-107); Creatine Kinase 72 U/L (55-170); Estimated CRCL calculation 175 ml/min; Estimated Glomerular Filt Rate > 60; Glucose 138 mg/dL (75-110); Potassium 3.5 mmol/L (3.4-5.0); Sodium 142 mmol/L (137-145)
[2020-04-08 23:51] LABS: Acetaminophen < 10 ug/mL (10-30); Ethanol 187 mg/dL (<10); Salicylate < 1.0 mg/dL (2-20)
[2020-04-08 23:52] LABS: Troponin I < 0.012 ng/mL (0.000-0.034)
[2020-04-09 01:29] LABS: Amphetamine Screen Urine Negative (Negative); Barbiturate Screen Urine Negative (Negative); Benzodiazepines Screen Urine Negative (Negative); Cannabinoid Screen Urine Negative (Negative); Cocaine Screen Urine Negative (Negative); Methadone Screen Urine Negative (Negative); Opiate Screen Urine Negative (Negative); Phencyclidine Screen Urine Negative (Negative)
[2020-04-09 01:35] VITALS: BP 138/94; PULSE 88; RESP 16; TEMP 36.7; O2SAT 97
== END 2020-04-09 01:36 | disposition home or self-care (01) ==
PROVIDERS: Emergency Provider Emergency Medicine; PCP Internal Medicine
DX: F10.20 Alcohol dependence, uncomplicated (principal); Y90.0 Blood alcohol level of less than 20 mg/100 ml
CPT/HCPCS: 36415; 80053; 80307; 82550; 84484; 85025; 96361; 96374; 96375; 99284; J2060; J2405; J3411; J7120

== ENCOUNTER 2020-04-27 14:26 | Emergency (ER) | payer OTHER, SELFPAY ==
[2020-04-27 14:33] VITALS: BP 118/64; PULSE 59; RESP 18; TEMP 36.6; O2SAT 100
[2020-04-27 14:53] LABS: Basophils Absolute Auto 0.1 K/mm3 (0.0-0.1); Basophils Percent Auto 0.9 % (0.2-1.2); Eosinophils Absolute Auto 0.3 K/mm3 (0-0.3); Eosinophils Percent Auto 4.2 % (0-4.4); Hematocrit 42.4 % (42.0-52.0); Hemoglobin 14.7 g/dL (14.0-18.0); Immature Granulocyte Absolute 0.02 K/mm3 (0.00-0.031); Immature Granulocyte Percent A 0.3 % (0-0.5); Immature Platelet Fraction Pct 3.1 % (0.9-11.2); Lymphocytes Absolute Auto 1.39 K/mm3 (0.9-3.2); Lymphocytes Percent Auto 20.2 % (18.3-44.2); Mean Corpuscular HGB Conc 34.7 g/dl (32-36); Mean Corpuscular Hemoglobin 32.1 pg (26-34); Mean Corpuscular Volume 92.6 fl (80-100); Mean Platelet Volume 10.2 fl (7.4-10.4); Monocytes Absolute Auto 0.5 K/mm3 (0.1-0.6); Monocytes Percent Auto 7.9 % (2.6-8.5); Neutrophils Absolute Auto 4.6 K/mm3 (1.3-6.7); Neutrophils Percent Auto 66.5 % (45.5-73.1); Platelet Count Result 123 k/mm3 (150-375); Red Blood Count 4.58 M/mm3 (4.6-6.20); Red Cell Distribution Width 16.1 % (11.5-14.5); White Blood Count 6.9 K/mm3 (4.5-10.0)
[2020-04-27 15:03] LABS: Ethanol < 10 mg/dL (<10)
[2020-04-27 15:04] LABS: Alanine Aminotransferase 36 U/L (4-50); Albumin Level 3.8 g/dL (3.5-5.1); Alkaline Phosphatase 100 U/L (38-126); Anion Gap 6 mmol/L (8-16); Aspartate Amino Transferase 51 U/L (17-59); Bilirubin,Total 2.7 mg/dL (0.2-1.3); Blood Urea Nitrogen 13 mg/dL (9-20); Calcium 8.9 mg/dL (8.4-10.2); Carbon Dioxide 28 mmol/L (22-30); Chloride 102 mmol/L (98-107); Estimated CRCL calculation 128 ml/min; Estimated Glomerular Filt Rate > 60; Glucose 104 mg/dL (75-110); Potassium 4.3 mmol/L (3.4-5.0); Sodium 136 mmol/L (137-145)
--- NOTE | 2020-04-27 15:11 | ED.PSYCH ---
HPI - Psych General Chief Complaint: Psychiatric Symptoms Stated Complaint: need med clearance for recovery program Time Seen by Provider: 04/27/20 14:56 History of Present Illness HPI Narrative: 49 yo male w/ h/o alcoholism presents to the ED for suicidal ideation. He is attempting to be placed in a rehabilitation facility. While doing a preplacement phone interview he told them that he had thought about suicide. They required him to come here for psychological clearance. He denies any active suicidal thoughts or plan. He has never attempted to harm himself. He does admit to being depressed due to problems caused by his substance abuse. He says this is why he is seeking treatment and he has no intention of harming himself and he never would. Related Data Home Medications Medication Instructions Recorded Confirmed bupropion HCl 150 mg PO BID 03/31/20 04/01/20 magnesium oxide 400 mg PO BID 03/31/20 Allergies Allergy/AdvReac Type Severity Reaction Status Date / Time No Known Allergies Allergy Verified 04/08/20 22:26 Review of Systems Review of Systems: All systems reviewed & are unremarkable except as noted in HPI and below PMFSH Past Medical History Medical History Alcoholism (Unknown) Cirrhosis Esophageal varices Essential tremor History of blood transfusion Oral herpes simplex infection Surgical History Surgical History History of esophagogastroduodenoscopy (EGD) x3 Family History Family History Father Family history of alcoholism Family history of cardiovascular disease Mother Family history of malignant neoplasm of breast in first degree relative Social History Social History Smoking status: Never smoker Second hand tobacco smoke exposure: No Alcohol intake: current Gender identity (if verbalized by the patient): Male Exam Const: General: healthy appearing, no acute distress and alert Orientation/consciousness: patient oriented x3 HENMT: Head: normal to inspection Neck: Neck: normal visual inspection and no lymphadenopathy Chest: Chest palpation & inspection: no tenderness Resp: Effort & Inspection: normal respiratory effort Auscultation: clear to auscultation bilaterally, no rales, no rhonchi and no wheezes Cardio: Jugular venous distension: no JVD Rate: regular rate Rhythm: regular rhythm Heart sounds: no murmurs GI: Inspection: non-distended GI Palp: Yes Soft to palpation and No Tenderness to palpation present (GI) Skin: General skin exam: normal color Neuro: General: patient oriented x3 and moves all extremities Speech: normal speech Extrem: General: no edema Psych: Appearance: grossly normal and well kempt Mental Status: mental status grossly normal Affect: normal affect Attitude: cooperative Thought content: No Suicidality present, No Homicidality present and Yes Depressive thoughts present Course Vital Signs Vital signs: Vital Signs Temperature 36.6 C 04/27/20 14:33 Pulse Rate 59 L 04/27/20 14:33 Respiratory Rate 18 04/27/20 14:33 Blood Pressure 118/64 04/27/20 14:33 Pulse Oximetry 100 04/27/20 14:33 Temperature 36.6 C 04/27/20 14:33 Pulse Rate 59 L 04/27/20 14:33 Respiratory Rate 18 04/27/20 14:33 Blood Pressure 118/64 04/27/20 14:33 Pulse Oximetry 100 04/27/20 14:33 MDM - Psych MDM Narrative Medical decision making narrative: Seen by crisis and they believe that he is safe for admission into treatment. Medical Records Attestation: I reviewed the patient's medical records. Lab Data Attestation: I reviewed the patient's lab results. Result diagrams: 04/27/20 14:41 04/27/20 14:41 Labs: Lab Results 04/27/20 04/27/20 04/27/20 Range/Units 14:41 14:41 14:41 WB
[2020-04-27 15:56] LABS: Add Urine Microscopic? YES; Appearance Urine Clear (Clear); Bilirubin Urine Negative (Negative); Blood Urine Negative (Negative); Color Urine Amber (Yellow); Glucose Urine UA Negative (Negative); Ketones Urine Trace mg/dL (Negative); Leukocyte Esterase Ur Negative LEU/UL (Negative); Mucus Urine Heavy /lpf; Nitrate Urine Negative (Negative); Protein Urine 2+ mg/dL (Negative); RBC Urine 0-2 /hpf (0-2); WBC Urine 0-3 /hpf
[2020-04-27 15:59] LABS: Specific Grav Ur 1.036 (1.001-1.035)
[2020-04-27 16:08] LABS: Amphetamine Screen Urine Negative (Negative); Barbiturate Screen Urine Negative (Negative); Benzodiazepines Screen Urine Negative (Negative); Cannabinoid Screen Urine Negative (Negative); Cocaine Screen Urine Negative (Negative); Methadone Screen Urine Negative (Negative); Opiate Screen Urine Negative (Negative); Phencyclidine Screen Urine Negative (Negative)
== END 2020-04-27 18:57 | disposition home or self-care (01) ==
PROVIDERS: Emergency Medicine; Emergency Provider Emergency Medicine; PCP Internal Medicine
DX: R45.851 Suicidal ideations (principal); F10.20 Alcohol dependence, uncomplicated; K74.60 Unspecified cirrhosis of liver
CPT/HCPCS: 36415; 80053; 80307; 81001; 84443; 85025; 85055; 99284